=== PATIENT | female | born 1935 | race Caucasian/White ===

== ENCOUNTER 2021-09-30 10:10 | Emergency (ER) | payer MEDICARE ==
[2021-09-30] MEDS ORDERED: BABY ASPIRIN 81 MG CHEW PO ONE (10:23)
[2021-09-30] MEDS ORDERED: Nitrostat 0.4 MG Tablet SL ONE (10:24)
--- NOTE | 2021-09-30 10:54 | XRAY ---
Indication: Chest pain. Comparison: March 23, 2017. Portable apical lordotic chest demonstrates new right right middle lobe infiltrate/atelectasis. Remaining heart and lungs unremarkable. Bony thorax intact again with osteopenia and degenerative changes.
--- NOTE | 2021-09-30 10:57 | ERPHSYRPT ---
- History of Present Illness Historian: patient Exam Limitations: no limitations Patient Subjective Stated Complaint: " I've been having pains in my left side chest since Last . I've been up at [facility] and the pains still haven't went away. I went to see Dr. Ramírez and she sent me over here". Triage Nursing Assessment: Pt presents to ER with complains of left sided chest pains x 4 days. Rates pain 6/10 scale in left side of chest and radiates down left arm. Pt denies dizziness/lightheadness, denies shortness of breath, or n/v/d. Pt is alert and oriented x 3. Skin is pink, warm, and dry. Respirations are easy and unlabored at this time. Physician History: 86 yo WF w mid-sternal CP radiating to her LUE since 3AM. Pt has h/o CAD/[place] nt/HTN but denies hyperlipidemia/tobacco use/DM. She was admitted at [facility] for same pain over night on 09/27/21. Pt denies N/V/diaphoresis/cough/fever. States that pain 6-8/10. She has been having chest pain over the last 2-[address] Ramírez called who stated that Dr. Edwards wants Lovenox 1mg/Kg w transfer to [facility]. Timing/Duration: other (3AM) Activities at Onset: sleep Quality: throbbing Location: substernal Chest Pain Radiation: arm (LUE) Modifying Factors: Improves With: nothing Associated Symptoms: denies symptoms Prior Chest Pain/Cardiac Workup: angina Nitro Today/Relief: 0.4 mg x 1, no relief Aspirin Treatment Today: no aspirin today Allergies/Adverse Reactions: Sulfa (Sulfonamide Antibiotics) Allergy (Verified 09/30/21 10:30) Home Medications: Levothyroxine Sodium 50 Mcg [Synthroid 50 Mcg] 50 mcg PO DAILY 03/06/15 [History] Lisinopril 20 mg [Zestril 20 MG] 20 mg PO DAILY 03/06/15 [History] Ferrous Sulfate 1 tab PO BID 03/28/15 [History] Fluticasone/Salmeterol [Advair 250-50 Diskus] 1 puff IH DAILY PRN PRN 03/28/15 [History] Ropinirole HCl [Requip] 1 mg PO HS 03/30/15 [History] Hx Tetanus, Diphtheria Vaccination/Date Given: Yes Hx Influenza Vaccination/Date Given: Yes Hx Pneumococcal Vaccination/Date Given: Yes Immunizations Up to Date: Yes Travel Risk - International Travel Have you traveled outside of the country in past 3 weeks: No - Coronavirus Screening Are you exhibiting any of the following symptoms?: No Close contact with a COVID-19 positive Pt in past 14-21 Days: No - Vaccine Status Have you recieved a Covid-19 vaccination: Yes [employer]: Moderna - Vaccination Dates Date of 2cond Vaccination (if applicable): 2020 - Review of Systems Constitutional: No Symptoms Eyes: No Symptoms Ears, Nose, & Throat: No Symptoms Respiratory: No Symptoms Cardiac: No Symptoms, Chest Pain Abdominal/Gastrointestinal: No Symptoms Genitourinary Symptoms: No Symptoms Musculoskeletal: No Symptoms Skin: No Symptoms Neurological: No Symptoms Psychological: No Symptoms Endocrine: No Symptoms Hematologic/Lymphatic: No Symptoms Immunological/Allergic: No Symptoms - Past Medical History Pertinent Past Medical History: Yes Neurological History: No Pertinent History ENT History: Cataracts Cardiac History: Hypertension Respiratory History: Asthma, Other Endocrine Medical History: Hypothyroidism Musculoskeletal History: No Pertinent History GI Medical History: No Pertinent History History: Renal Disease Psycho-Social History: No Pertinent History Female Reproductive Disorders: No Pertinent History Other Medical History: takes theophylline-states for some asthma. - Past Surgical History Past Surgical History: Yes Neuro Surgical History: No Pertinent History Cardiac: No Pertinent History Respiratory: No Pertinent History Gastrointestinal: No Pertinent History Genitourinary: No Pertinent History Musculoskeletal: No Pertinent History Female Surgical History: Hysterectomy Other Surgical History: spot removed from head- had trouble waking up. - Social History Smoking Status: Never smoker Exposure to second hand smoke: No Drug Use: none Patient Lives Alone: Yes Significant Family History: no pertinent family hx - Nursing Vital Signs Nursing Vital Signs: Initial Vital Signs Temperature 96.9 F 09/30/21 10:22 Pulse Rate 50 L 09/30/21 10:22 Respiratory Rate 16 09/30/21 10:22 Blood Pressure 194/66 09/30/21 10:22 O2 Sat by Pulse Oximetry 99 09/30/21 10:22 Pain Scale Pain Intensity 0 Hypertensive - Physical Exam General Appearance: no apparent distress Eye Exam: PERRL/EOMI, eyes nml inspection Ears, Nose, Throat Exam: normal ENT inspection, TMs normal, pharynx normal, moist mucous membranes Neck Exam: normal inspection, non-tender, supple, full range of motion, No meningismus Respiratory Exam: normal breath sounds, lungs clear, airway intact, No chest tenderness, No respiratory distress Cardiovascular Exam: bradycardia, capillary refill <2 sec, No murmur Gastrointestinal/Abdomen Exam: soft, normal bowel sounds, No tenderness Back Exam: normal inspection Extremity Exam: normal inspection, normal range of motion Neurologic Exam: alert, oriented x 3, cooperative, faculty criminal justice II-XII nml as tested, normal mood/affect, nml cerebellar function, nml station & gait, sensation nml Skin Exam: normal color, warm, dry, No rash Lymphatic Exam: No adenopathy SpO2 Interpretation: normal SpO2: 99 O2 Delivery: Room Air - Course Nursing assessment & vital signs reviewed: Yes EKG Interpreted by Me: RATE (Sinus adolfo/Rate 53/Normal Qt-QTc/LVH w strain/Flipped Twaves V4-V6 w strain pattern/EKG#2 sinus adolfo/prolonged QT/LVH w strain pattern/Flipped Twaves V4-V6 due to LVH/No acute ST changes) - Radiology Exams Chest X-ray Interpretation: Discussed w/ radiologist (R middle lobe inflitrate/atelectasis) - CT Exams Chest CT Interpretation: Discussed w/radiologist (CT chest R middle lobe-R lower lobe atelectasis) Ordered Tests: Active Orders 24 hr Category Date Time Status EKG-ER Only STAT Care 09/30/21 10:21 Completed EKG-ER Only STAT Care 09/30/21 18:15 Completed CHEST 1 VIEW (PORTABLE) Stat Exams 09/30/21 10:21 Completed CHEST WITHOUT CONTRAST [CT] Stat Exams 09/30/21 11:53 Completed CBC W DIFF Stat Lab 09/30/21 10:49 Completed CMP Stat Lab 09/30/21 10:49 Completed NT PRO BNP Stat Lab 09/30/21 10:49 Completed PROTIME WITH INR Stat Lab 09/30/21 10:49 Completed PTT Stat Lab 09/30/21 10:49 Completed TROPONIN Q3H Lab 09/30/21 10:49 Completed TROPONIN Q3H Lab 09/30/21 13:20 Completed TROPONIN Q3H Lab 09/30/21 17:05 Completed Medication Summary Discontinued Medications Generic Name Dose Route Start Last Admin Trade Name Freq PRN Reason Stop Dose Admin Aspirin 324 mg 09/30/21 10:23 09/30/21 11:02 Aspirin 81 Mg Tab.Chew PO 09/30/21 10:24 324 mg STAT ONE Administration Enoxaparin Sodium 50 mg 09/30/21 13:16 09/30/21 13:27 Enoxaparin Sodium 60 Mg/0.6 Ml Syringe 1 mg/kg (50 mg) 09/30/21 13:17 50 mg SQ Administration STAT ONE Enoxaparin Sodium Confirm 09/30/21 13:23 Enoxaparin Sodium 80 Mg/0.8 Ml Syringe Administered 09/30/21 13:24 Dose 80 mg SQ .STK-MED ONE Nitroglycerin/Dextrose 250 mls @ 1.5 mls/hr 09/30/21 13:16 09/30/21 13:24 Ntg 0.2mg/Ml In D5w Glass IV 10/30/21 13:15 5 mcg/min .Q24H PRN 1.5 mls/hr CHEST PAIN Administration Protocol 5 MCG/MIN Sodium Chloride 1,000 mls @ 999 mls/hr 09/30/21 18:15 09/30/21 18:16 Sodium Chloride 0.9% 1000 Ml IV 09/30/21 19:15 999 mls/hr .Q1H1M STA Administration Sodium Chloride Confirm 09/30/21 18:15 Sodium Chloride 0.9% 1000 Ml Administered 09/30/21 18:16 Dose 1,000 mls @ ud .ROUTE .STK-MED ONE Nitroglycerin/Dextrose Confirm 09/30/21 13:23 Ntg 0.2mg/Ml In D5w Glass Administered 09/30/21 13:24 Dose 250 mls @ ud IV .STK-MED ONE Morphine Sulfate 4 mg 09/30/21 12:47 09/30/21 12:52 Morphine Sulfate 4 Mg/Ml Injection IV 09/30/21 12:48 4 mg STAT ONE Administration Morphine Sulfate Confirm 09/30/21 12:50 Morphine Sulfate 4 Mg/Ml Injection Administered 09/30/21 12:51 Dose 4 mg .ROUTE .STK-MED ONE Nitroglycerin 0.4 mg 09/30/21 10:24 09/30/21 11:02 Nitroglycerin 0.4 Mg Tablet Bottle SL 09/30/21 10:25 0.4 mg STAT ONE Administration Nitroglycerin Confirm 09/30/21 10:59 Nitroglycerin 0.4 Mg (Ed) 0.4 Mg Tab.Subl Administered 09/30/21 11:00 Dose 0.4 mg SL .STK-MED ONE Nitroglycerin Confirm 09/30/21 11:01 Nitroglycerin 0.4 Mg (Ed) 0.4 Mg Tab.Subl Administered 09/30/21 11:02 Dose 0.4 mg SL .STK-MED ONE Ondansetron HCl 4 mg 09/30/21 12:48 09/30/21 12:52 Ondansetron Hcl 4 Mg/2 Ml Vial IV 09/30/21 12:49 4 mg STAT ONE Administration Ondansetron HCl Confirm 09/30/21 12:51 Ondansetron Hcl 4 Mg/2 Ml Vial Administered 09/30/21 12:52 Dose 4 mg .ROUTE .STK-MED ONE Ondansetron HCl 4 mg 09/30/21 17:58 09/30/21 18:07 Ondansetron Hcl 4 Mg/2 Ml Vial IV 09/30/21 17:59 4 mg STAT ONE Administration Ondansetron HCl Confirm 09/30/21 17:59 Ondansetron Hcl 4 Mg/2 Ml Vial Administered 09/30/21 18:00 Dose 4 mg .ROUTE .STK-MED ONE Ondansetron HCl 4 mg 09/30/21 18:04 09/30/21 18:14 Ondansetron Hcl 4 Mg/2 Ml Vial IV 09/30/21 18:05 Not Given STAT ONE Lab/Rad Data: Laboratory Result Diagrams 09/30/21 10:49 09/30/21 10:49 Laboratory Results 09/30/21 09/30/21 09/30/21 Range/Units 17:05 13:20 10:49 WBC (4.0-10.5) K/mm3 RBC (4.1-5.4) M/mm3 Hgb (12.0-16.0) gm/dl Hct (35-47) % MCV (78-100) fl MCH (26-32) pg MCHC (32-36) g/dl RDW (11.5-14.0) % Plt Count (150-450) K/mm3 MPV (7.5-11.0) fl Gran % (36.0-66.0) % Eos # (Auto) (0-0.5) Absolute Lymphs (auto) (1.0-4.6) Absolute Monos (auto) (0.0-1.3) Lymphocytes % (24.0-44.0) % Monocytes % (0.0-12.0) % Eosinophils % (0.00-5.0) % Basophils % (0.0-0.4) % Absolute Granulocytes (1.4-6.9) Basophils # (0-0.4) PT (9.4-12.5) SECONDS INR (0.8-3.0) APTT (25.1-36.5) SECONDS Sodium (137-145) mmol/L Potassium (3.5-5.1) mmol/L Chloride (98-107) mmol/L Carbon Dioxide (22-30) mmol/L Anion Gap (5-15) MEQ/L BUN (7-17) mg/dL Creatinine (0.52-1.04) mg/dL Estimated GFR ML/MIN Glucose (74-106) mg/dL Calcium (8.4-10.2) mg/dL Total Bilirubin (0.2-1.3) mg/dL AST (14-36) U/L ALT (0-35) U/L Alkaline Phosphatase (38-126) U/L Troponin I < 0.012 < 0.012 < 0.012 (0.000-0.034) ng/mL NT-Pro-B Natriuret Pep (0-1800) pg/mL Serum Total Protein (6.3-8.2) g/dL Albumin (3.5-5.0) g/dL 09/30/21 09/30/21 09/30/21 Range/Units 10:49 10:49 10:49 WBC 4.0 (4.0-10.5) K/mm3 RBC 3.77 L (4.1-5.4) M/mm3 Hgb 11.4 L (12.0-16.0) gm/dl Hct 35.5 (35-47) % MCV 94.2 (78-100) fl MCH 30.2 (26-32) pg MCHC 32.1 (32-36) g/dl RDW 12.4 (11.5-14.0) % Plt Count 256 (150-450) K/mm3 MPV 9.5 (7.5-11.0) fl Gran % 50.8 (36.0-66.0) % Eos # (Auto) 0.49 (0-0.5) Absolute Lymphs (auto) 0.96 L (1.0-4.6) Absolute Monos (auto) 0.50 (0.0-1.3) Lymphocytes % 23.9 L (24.0-44.0) % Monocytes % 12.4 H (0.0-12.0) % Eosinophils % 12.2 H (0.00-5.0) % Basophils % 0.7 (0.0-0.4) % Absolute Granulocytes 2.04 (1.4-6.9) Basophils # 0.03 (0-0.4) PT 10.7 (9.4-12.5) SECONDS INR 1.01 (0.8-3.0) APTT 27.3 (25.1-36.5) SECONDS Sodium 138 (137-145) mmol/L Potassium 3.9 (3.5-5.1) mmol/L Chloride 103 (98-107) mmol/L Carbon Dioxide 29 (22-30) mmol/L Anion Gap 9.5 (5-15) MEQ/L BUN 25 H (7-17) mg/dL Creatinine 0.94 (0.52-1.04) mg/dL Estimated GFR > 60.0 ML/MIN Glucose 89 (74-106) mg/dL Calcium 9.7 (8.4-10.2) mg/dL Total Bilirubin 0.60 (0.2-1.3) mg/dL AST 34 (14-36) U/L ALT 16 (0-35) U/L Alkaline Phosphatase 68 (38-126) U/L Troponin I (0.000-0.034) ng/mL NT-Pro-B Natriuret Pep 497 (0-1800) pg/mL Serum Total Protein 7.5 (6.3-8.2) g/dL Albumin 4.1 (3.5-5.0) g/dL - Progress Progress: improved Progress Note: 09/30/21 12:49 Aspirin 324mg chewable SL NTG x1 09/30/21 13:17 [facility], wants to start NTG drip before transfer to see level of care/ Wants 1mg/Kg Lovenox 09/30/21 14:00 Pt's pain stable on 5mcg NTG/Hr Lovenox 50mg sq x1 09/30/21 21:52 Pt developed mild hypotension while on NTG drip. Drip stopped and 1L NS bolus given w good BP response. Pt developed mild nausea which was treated w 4mg IV Zofran w success. Pt's pain minimal when care assumed by EMS w stable VS. 09/30/21 21:58 Troponin neg x3 during stay Counseled pt/family regarding: lab results, diagnosis, need for follow-up, rad results - Departure Departure Disposition: Transfer Clinical Impression: Unstable angina Condition: Stable Critical Care Time: No Referrals: CHRISTOPHER ESPOSITO [Primary Care Provider] - Follow up/PCP as directed Instructions: Angina (DC)
[2021-09-30] MEDS ORDERED: Nitrostat 0.4 MG (ED) SL ONE ×2 (10:59→11:01)
[2021-09-30 11:12] LABS: Absolute Neutrophil Ct (ANC) 2.04 (1.4-6.9); Basophil (Absolute #) 0.03 (0-0.4); Eosinophil % 12.2 % (0.00-5.0); Eosinophil (Absolute #) 0.49 (0-0.5); Hematocrit 35.5 % (35-47); Hemoglobin 11.4 gm/dl (12.0-16.0); Lymphocyte (Absolute #) 0.96 (1.0-4.6); Lymphocytes % 23.9 % (24.0-44.0); Mean Cell Volume 94.2 fl (78-100); Mean Corpuscular Hemoglobin 30.2 pg (26-32); Mean Corpuscular Hgb Concent. 32.1 g/dl (32-36); Mean Platelet Volume 9.5 fl (7.5-11.0); Monocytes % 12.4 % (0.0-12.0); Neutrophil % 50.8 % (36.0-66.0); Platelet Count 256 K/mm3 (150-450); Red Blood Count 3.77 M/mm3 (4.1-5.4); Red Cell Distribution Width 12.4 % (11.5-14.0)
[2021-09-30 11:21] LABS: ALBUMIN 4.1 g/dL (3.5-5.0); ALKALINE PHOSPHATASE 68 U/L (38-126); ANION GAP 9.5 MEQ/L (5-15); BLOOD UREA NITROGEN 25 mg/dL (7-17); CHLORIDE 103 mmol/L (98-107); Calcium 9.7 mg/dL (8.4-10.2); Carbon Dioxide 29 mmol/L (22-30); Creatinine 1 0.94 mg/dL (0.52-1.04); EST GLOMERULAR FILTRATION RATE > 60.0 ML/MIN; Glucose 89 mg/dL (74-106); NT PRO BNP 497 pg/mL (0-1800); Potassium 3.9 mmol/L (3.5-5.1); SGOT/AST 34 U/L (14-36); SGPT/ALT 16 U/L (0-35); SODIUM 138 mmol/L (137-145); Total Protein 7.5 g/dL (6.3-8.2)
[2021-09-30 11:31] LABS: INR 1.01 (0.8-3.0); PROTIME 10.7 SECONDS (9.4-12.5); PTT 27.3 SECONDS (25.1-36.5)
--- NOTE | 2021-09-30 12:29 | XRAY ---
Indication: Chest pain. Abnormal chest radiograph. Multiple contiguous axial images obtained through the chest without contrast. Comparison: None Medial right middle lobe and lesser degree lingula/posterior right lower lobe demonstrates small focus of subsegmental atelectasis/scarring. No suspicious pulmonary mass, infiltrate, effusion, or pneumothorax. Heart not enlarged with small pericardial effusion/thickening. Aorta moderately arteriosclerotic without aneurysm. Small distal paratracheal calcified node. No pathologic mediastinal lymphadenopathy. Bony thorax intact with mild osteopenia, mild degenerative changes throughout the spine, and old lateral left 5/6 rib fractures. Limited upper abdomen unremarkable. Impression: 1. Right middle lobe and lesser degree lingula/right lower lobe subsegmental atelectasis/scarring. 2. No acute cardiopulmonary abnormalities. 3. Incidental chronic bony findings and old granulomatous disease.
[2021-09-30] MEDS ORDERED: MORPHINE SULFATE 4 MG INJ IV ONE (12:47)
[2021-09-30] MEDS ORDERED: Zofran 4 MG/2 ML VIAL IV ONE ×3 (12:48→18:04)
[2021-09-30] MEDS ORDERED: MORPHINE SULFATE 4 MG INJ ONE (12:50)
[2021-09-30] MEDS ORDERED: Zofran 4 MG/2 ML VIAL ONE ×2 (12:51→17:59)
[2021-09-30] MEDS ORDERED: ENOXAPARIN SODIUM SQ ONE ×2 (13:16→13:23)
[2021-09-30] MEDS ORDERED: Ntg 0.2MG/Ml in D5W GLASS*** 250 ML IV PRN (13:16)
[2021-09-30] MEDS ORDERED: Ntg 0.2MG/Ml in D5W GLASS*** 250 ML IV ONE (13:23)
[2021-09-30] MEDS ORDERED: Sodium Chloride 0.9% 1000 ML 1,000 ML IV STA (18:15)
[2021-09-30] MEDS ORDERED: Sodium Chloride 0.9% 1000 ML 1,000 ML ONE (18:15)
[2021-09-30 18:35] VITALS: BP 119/52; PULSE 50
[2021-09-30 21:58] VITALS: O2SAT 99
== END 2021-09-30 19:37 | disposition short-term general hospital (02) ==
LOC: ED 10:10
DX: I25.110 Atherosclerotic heart disease of native coronary artery with unstable angina pectoris (principal); I10 Essential (primary) hypertension; R07.9 Chest pain, unspecified; Z79.899 Other long term (current) drug therapy
CPT/HCPCS: 36000; 36415; 71045; 71250; 80053; 83880; 84484; 85025; 85610; 85730; 93005; 96360; 96372; 96374; 96375; 96376; 99285; J1650; J2270; J2405; A9270-GY